=== PATIENT | male | born 1940 | race Caucasian/White ===

== ENCOUNTER 2025-01-22 21:03 | Emergency (ER) | payer MEDICARE ==
[~2025-01-22] VITALS: Ht 172.7 cm; Wt 70.0 kg
[2025-01-22 21:08] VITALS: BP 103/46; PULSE 60; RESP 16; TEMP 36.4; O2SAT 98
[2025-01-23] MEDS ORDERED: TETANUS, DIPHTHERIA, PERTUSSIS VAC/PF 0.5ML (>10YR OLD) IM ONE (01:15)
== END 2025-01-23 01:14 | disposition home or self-care (01) ==
LOC: ER 21:03
DX: Z04.3 Encounter for examination and observation following other accident (principal); E78.00 Pure hypercholesterolemia, unspecified; I67.82 Cerebral ischemia; Z95.0 Presence of cardiac pacemaker; W19.XXXA Unspecified fall, initial encounter; Y93.89 Activity, other specified; Y92.89 Other specified places as the place of occurrence of the external cause; Y99.8 Other external cause status
CPT/HCPCS: 73080; 99284